=== PATIENT | female | born 2000 | race Caucasian/White ===

== ENCOUNTER 2022-12-22 19:50 | Inpatient (IN) | payer OTHER, SELFPAY ==
[2022-12-22 19:59] VITALS: BMI 37.7
[2022-12-22 20:04] VITALS: BP 144/94; PULSE 88; RESP 16; TEMP 37.1; O2SAT 96
[2022-12-22 20:33] LABS: MANUAL DIFF FLAG NO
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
[2022-12-22 20:39] LABS: Basophils Percent Auto 0.2 % (0-2); Eosinophils Absolute Auto 0.2 X10*3/uL (0.0-0.4); Eosinophils Percent Auto 2.2 % (0-4); Hemoglobin 14.1 g/dl (12.0-16.0); Imm Gran Abs Auto 0.01 X10*3/uL (0.00-0.03); Imm Gran Pct Auto 0.1 % (0.0-0.4); Lymphocytes Absolute Auto 3.1 X10*3/uL (1.2-4.9); Lymphocytes Percent Auto 35.7 % (20-40); Mean Corpuscular HGB Conc 33.6 g/dl (31.0-35.0); Mean Corpuscular Hemoglobin 28.7 pg (27.0-33.0); Mean Corpuscular Volume 85.5 fL (80.0-98.0); Mean Platelet Volume 10.3 fL (9.4-12.3); Monocytes Absolute Auto 0.8 X10*3/uL (0.1-1.2); Monocytes Percent Auto 8.9 % (2-11); Neutrophils Absolute Auto 4.6 x10*3/uL (2.0-8.3); Neutrophils Percent Auto 52.9 % (45-73); Platelet Count 329 X10*3/uL (160-400); Red Blood Count 4.91 X10*6/uL (4.20-5.50); Red Cell Distribution Width 13.6 % (11.0-16.0); White Blood Count 8.7 X10*3/uL (4.8-10.8)
[2022-12-22 20:41] LABS: Appearance Urine Clear; Color Urine Yellow; Glucose Urine UA Negative (Negative); Leukocyte Esterase Urine Large (3+) (Negative); Nitrite Urine Negative (Negative); Specific Gravity - Urine 1.015 (1.005-1.025); UMIC TRIGGER UA YES; Urine Blood Negative (Negative); Urine Ketones Negative (Negative); Urine Protein Negative (Neg-Trace)
[2022-12-22 20:43] LABS: UPreg QC Valid YES; Urine Pregnancy NEGATIVE (NEGATIVE)
[2022-12-22 20:50] LABS: Amphetamine Screen Urine Not Detected (Not Detect); Barbiturates, Urine Not Detected (Not Detect); Benzodiazepines Screen Urine Not Detected (Not Detect); Cannabinoid Screen Urine Not Detected (Not Detect); Cocaine Screen Urine Not Detected (Not Detect); Fentanyl, urine Not Detected (Not Detect); Opiate Screen Urine Not Detected (Not Detect); Phencyclidine Screen Urine Not Detected (Not Detect)
[2022-12-22 20:52] LABS: Bacteria Urine Trace (None Seen); COVID-19 Test Negative (Negative); Hyaline Casts Urine 0-2 /LPF (0-2); IDNOW Serial# 16C4AD1C; RBC Urine 0-2 /HPF (0-2); Squamous Epithelial Cell Urine 0-2 /HPF (0-2); WBC Urine 0-5 /HPF (0-5)
[2022-12-22 20:55] LABS: Alanine Aminotransferase 17 U/L (0-31); Alkaline Phosphatase 117 U/L (39-117); Anion Gap 11 (12-20); Aspartate Amino Transferase 13 U/L (5-31); Bilirubin Total 0.4 mg/dL (0.0-1.0); Blood Urea Nitrogen 11 mg/dL (9-16); Calcium 8.7 mg/dL (8.4-10.2); Carbon Dioxide 25 mmol/L (22-29); Chloride 106 mmol/L (96-108); Creatinine Clr Calc Pharmacy 131.5; Estimated Glomerular Filt Rate > 60; Glucose Random 103 mg/dL (60-115); Sodium 138 mmol/L (135-145); Total Protein 7.2 g/dL (6.5-8.0)
[2022-12-22 20:56] LABS: Acetaminophen LAB < 17 mcg/mL (<30); Ethanol < 10 mg/dL; Salicylate < 5.0 mg/dL (15-30)
--- NOTE | 2022-12-23 06:20 | PC.NURSE ---
Patient slept through the night, no distress observed/reported, med rec completed/pending provider's approval, disposition per Care team is section 12 inpatient bed search, behavior non concerning, VSS, will continue to monitor.
[2022-12-23 06:32] VITALS: BP 118/66; PULSE 59; RESP 16; TEMP 36.9; O2SAT 99
--- NOTE | 2022-12-23 08:26 | PC.NURSE ---
Patient awake, calm and cooperative, able to make needs known. currently taking a shower.
[2022-12-23] MEDS: hydrOXYzine HCL 25 MG TABLET PO (08:48)
[2022-12-23] MEDS: NaPROXEN 500 MG TABLET PO ×2 (08:48→19:57)
--- NOTE | 2022-12-23 09:55 | PC.NURSE ---
patient sitting upright on bed, fidgeting her hands under the blanket. This RN went in to see patient and asked if she wanted to talk, patient was willing to communicate w/ this RN. When patient asked if she had something under the blanket she was calm and cooperative and handed this RN a plastic fork that was broken into 2 pieces. Patient states she was scratching her wrists with forks, no new abrasions- old scarring noted. Patient is tearful and states that she is feeling frustrated that she is feeling suicidal again since her OD attempt last year but that she has had a lot of things going on. Patient states she does have friends to hang out with but thats just more of a distraction then help. Patient now resting in bed w/ eyes closed.
[2022-12-23 20:07] VITALS: BP 148/89; PULSE 70; RESP 20; TEMP 36.9; O2SAT 98
[2022-12-24 06:33] VITALS: BP 112/63; PULSE 74; RESP 16; TEMP 36.9; O2SAT 99
--- NOTE | 2022-12-24 06:39 | PC.NURSE ---
Patient slept through the night, no distress observed/reported, medication compliant, disposition per Care team is section 12 inpatient bed search, behavior non concerning, VSS, will continue to monitor.
[2022-12-24] MEDS: NaPROXEN 500 MG TABLET PO ×2 (08:31→20:41)
[2022-12-24] MEDS: hydrOXYzine HCL 25 MG TABLET PO (08:31)
--- NOTE | 2022-12-24 09:03 | PC.NURSE ---
medicated as ordered, steady gait, nad, watching tv at this time,
[2022-12-24 19:09] VITALS: BP 130/68; PULSE 68; RESP 18; TEMP 36.6; O2SAT 99
--- NOTE | 2022-12-25 07:24 | PC.NURSE ---
patient awake, eating breakfast. calm and cooperative with staff. gait steady. will CTM
[2022-12-25] MEDS: hydrOXYzine HCL 25 MG TABLET PO (08:46)
[2022-12-25] MEDS: NaPROXEN 500 MG TABLET PO ×2 (08:46→20:48)
[2022-12-25 09:02] VITALS: BP 128/81; PULSE 75; RESP 17; TEMP 36.6; O2SAT 97
[2022-12-25 15:30] VITALS: BP 135/78; PULSE 66; RESP 18; TEMP 36.7; O2SAT 99
[2022-12-25 17:02] VITALS: BMI 36.5
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
[2022-12-25 20:30] VITALS: BP 119/64; PULSE 75; RESP 16; TEMP 36.6; O2SAT 98
--- NOTE | 2022-12-26 00:52 | PC.NURSE ---
Patient belongings - 2 empty bottles of Concerta 36mg and 18mg were noted to have multiple pills inside which were not Concerta. Pills were identified by markings/color/shape as Gabapentin 800mg (12 pills) and Flexeril 5mg (26 pills). Unclear if pt has rx for these medications. Meds inventoried and sent to pharmacy.
[2022-12-26] MEDS: NaPROXEN 500 MG TABLET PO ×2 (08:45→20:21)
[2022-12-26] MEDS: hydrOXYzine HCL 25 MG TABLET PO (08:45)
[2022-12-26] MEDS: Acetaminophen 325 MG TABLET 650 MG PO ×2 (08:47→14:59)
[2022-12-26 08:54] VITALS: BP 133/72; PULSE 62; TEMP 35.6; O2SAT 98
[2022-12-26 09:43] LABS: Alanine Aminotransferase 48 U/L (0-31); Albumin Level 3.8 g/dL (3.5-5.0); Alkaline Phosphatase 124 U/L (39-117); Anion Gap 12 (12-20); Aspartate Amino Transferase 34 U/L (5-31); Bilirubin Direct < 0.2 mg/dL (0.0-0.5); Bilirubin Total 0.5 mg/dL (0.0-1.0); Blood Urea Nitrogen 12 mg/dL (9-16); Calcium 9.2 mg/dL (8.4-10.2); Carbon Dioxide 28 mmol/L (22-29); Chloride 106 mmol/L (96-108); Cholesterol 272 mg/dL; Creatinine Clr Calc Pharmacy 135.7; Estimated Glomerular Filt Rate > 60; Glucose Fasting 92 mg/dL (60-99); HDL Cholesterol 48 mg/dL; LDL Cholesterol Calculated 203 mg/dl; Potassium 4.9 mmol/L (3.3-5.1); Sodium 141 mmol/L (135-145); Triglycerides 105 mg/dL
[2022-12-26 09:56] LABS: Estimated Average Glucose 111 mg/dL; Hemoglobin A1c % 5.5 %
[2022-12-26 10:14] LABS: Folate 10.3 ng/mL (> or = 4.0); Free T4 (Free Thyroxine) 0.91 ng/dL (0.71-1.85); Thyroid Stimulating Hormone 2.02 uIU/mL (0.32-4.0); Vitamin B12 482 pg/mL (200-900)
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
[2022-12-26 20:10] VITALS: BP 132/74; PULSE 82; RESP 16; TEMP 36.6; O2SAT 98
[2022-12-27 06:00] VITALS: BP 130/64; PULSE 68; RESP 16; TEMP 36.6; O2SAT 98
[2022-12-27] MEDS: hydrOXYzine HCL 25 MG TABLET PO (08:08)
[2022-12-27] MEDS: NaPROXEN 500 MG TABLET PO ×2 (08:08→21:12)
[2022-12-27] MEDS: Acetaminophen 325 MG TABLET 650 MG PO (10:49)
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
[2022-12-27 21:20] VITALS: BP 132/65; PULSE 70; TEMP 36.8; O2SAT 97
[2022-12-28 08:00] VITALS: BP 137/76; PULSE 67; RESP 16; TEMP 36.3; O2SAT 99
[2022-12-28] MEDS: hydrOXYzine HCL 25 MG TABLET PO (09:38)
[2022-12-28] MEDS: NaPROXEN 500 MG TABLET PO (09:38)
--- NOTE | 2022-12-28 10:12 | PC.NURSE ---
Elie is alert, fully oriented, pleasant and cooperative with discharge process. She denies ideation, plan or intent to harm self or others. She verbalizes understanding of discharge appointments and medications. She denies physical complaint.
== END 2022-12-28 11:00 | disposition home or self-care (01) | DRG 755 ==
LOC: HO.ED 21:41 → HO.PADLT16 12-25 14:43
PROVIDERS: Physician Assistant; Admitting Provider Psychiatry & Neurology Psychiatry; Emergency Provider Internal Medicine; PCP Nurse Practitioner; Visit Provider Psychiatry & Neurology Psychiatry
DX: F43.25 Adjustment disorder with mixed disturbance of emotions and conduct (principal); R45.851 Suicidal ideations; F90.9 Attention-deficit hyperactivity disorder, unspecified type; Z20.822 Contact with and (suspected) exposure to COVID-19; Z79.899 Other long term (current) drug therapy
CPT/HCPCS: 36415; 80053; 80061; 80076; 80143; 80179; 80307; 81001; 81025; 82077; 82607; 82746; 83036; 84439; 84443; 85025; 87635; 99285; S9485